=== PATIENT | male | born 1960 | race Caucasian/White ===

== ENCOUNTER 2020-11-23 07:54 | Day surgery (SDC) | payer OTHER ==
[2020-11-18 14:26] LABS: Absolute Lymphocytes (CBC) 2.4 K/uL (0.7-4.9); Basophils % 0.4 % (0-1.3); Hematocrit 38.2 % (39.6-49.0); Lymphocytes % 20.5 % (15.3-44.8); MPV 8.6 fL (7.6-11.3); RBC Red Blood Cell Count 4.46 M/uL (4.33-5.43)
--- NOTE | 2020-11-18 14:26 | RAD REPORT ---
EXAM DESCRIPTION: Jaime Christopher And Jimy (2 Views)11/18/2020 2:18 pm CLINICAL HISTORY: Preop COMPARISON: 2017 FINDINGS: Calcified granuloma left lung. The lungs appear clear of acute infiltrate. The heart is normal size. Postsurgical changes involve spine IMPRESSION: No acute abnormalities displayed
[2020-11-18 14:42] LABS: Potassium 4.1 mmol/L (3.5-5.1)
--- NOTE | 2020-11-19 07:37 | EKG ---
Test Date: 2020-11-18 Test Time: 12:56:38 Vegetable Preparer: ET MEASUREMENT RESULTS: Intervals: Rate: 57 MS: 146 QRSD: 98 QT: 434 QTc: 422 [place]: P: 48 MS: 146 QRS: 29 T: 67 INTERPRETIVE STATEMENTS: Sinus bradycardia Otherwise normal ECG Compared to ECG 11/18/2020 12:56:13 No significant changes Electronically Signed On 11-19-20 07:34:43 CDT by Bhaskar Malcolm
[2020-11-23] MEDS ORDERED: propofoL 200 MG/20 ML VIAL IV ONE (08:24)
[2020-11-23] MEDS ORDERED: MIDAZOLAM HCL 2 MG/2 ML INJ ONE (08:25)
[2020-11-23] MEDS ORDERED: FENTANYL CITR 100 MCG/2 ML ONE (08:25)
[2020-11-23] MEDS ORDERED: dexAMETHasone 10 MG/ML VIAL ONE (08:25)
[2020-11-23] MEDS ORDERED: LIDOCAINE 1% MPF 5 ML VIAL ONE (08:25)
[2020-11-23] MEDS ORDERED: Ringers Lactate 1,000 ML IV ONE (09:09)
[2020-11-23] MEDS ORDERED: CEFAZOLIN/SWI 1gm 1 GM/10 ML SYR ONE (09:09)
[2020-11-23] MEDS ORDERED: EPHEDRINE SULF 50 MG/ML VIAL ONE (09:45)
[2020-11-23 12:26] VITALS: BP 116/70; TEMP 97.6; O2SAT 98
--- NOTE | 2020-11-23 13:00 | OP ---
Date of Procedure: 11/23/2020 Surgeon: Nathaniel Bal MD Help Desk Consultant: SHANTELLE Avila. Preoperative Diagnosis: Nonhealing wound, left buttock. Postoperative Diagnosis: Nonhealing wound, left buttock with fistulous tract. Procedure Performed: Wide excision, nonhealing wound with a fistulous tract on the left buttock 10 x 3 cm with layered closure. Estimated Blood Loss: Minimal. Specimens: Culture and sensitivity of the fistulous tract and nonhealing wound as well. Finding: As above. Anesthesia: General. Complications: None. Disposition: The patient tolerated the procedure in stable condition and taken to Recovery in good g eneral condition. Procedure In Detail: The patient was brought to the OR and placed in supine position. General anest hesia begun. The patient was placed in right lateral position, prepped and draped in the usual steri le fashion. Marcaine 0.5% infiltrated locally. Then, a probe was used to connect 2 openings on the left buttock approximately 10 cm apart and then cautery was used to dissect down to the probe, which revealed that there to be a nonhealing fistulous tract with granulation tissue. Cultures were done. Then, the entire fistulous tract was excised and sent to Pathology as specimen. Wound ir rigated. Bleeding controlled with cautery and this was all mostly healthy tissue that could be gross ly visualized and then a [place] drain quarter-inch placed and secured with 3-0 nylon and 2-0 chromic was used to approximate the subcutaneous tissue and 4-0 nylon was used to close the skin. Sterile d ressing was applied. The patient was awaken and taken to Recovery in good general condition. Discharge Note: The patient will go to Day Surgery and home when stable. Disposition: Home. Condition: Stable. Discharge Instructions: Resume home medications and diet. Activity as tolerated. No heavy lifting. Remove outer dressing in 2 days. Shower. Keep wound clean and dry. Dry gauze to wound daily. [facility] and my clinic in 1 week. Tylenol No. 3 one tablet q.4 p.r.n. pain, K eflex 500 mg p.o. q.6. /MODL Voice ID: [id number] Report ID: [id number]
== END 2020-11-23 11:45 | disposition home health service (06) ==
LOC: OR 07:54
PROVIDERS: ATTEND Surgery
PROC: 0JB90ZZ Excision of Buttock Subcutaneous Tissue and Fascia, Open Approach (ICD-10-PCS; principal; 2020-11-23 09:15)
DX: L89.324 Pressure ulcer of left buttock, stage 4 (principal); L98.8 Other specified disorders of the skin and subcutaneous tissue; Z20.822 Contact with and (suspected) exposure to COVID-19
CPT/HCPCS: 93005; 87070; 85025; 80048; 36415; 87205; 88304; 87075; 71046; 11406; U0002; J2704; J2250; J3010; J1100; J0690; J7120